=== PATIENT | female | born 1985 | race Caucasian/White ===

== ENCOUNTER 2022-03-30 13:24 | Emergency (ER) | payer OTHER, SELFPAY ==
[2022-03-30 13:42] VITALS: BP 152/81; PULSE 97; RESP 20; TEMP 36.9; O2SAT 99; BMI 24.7
[2022-03-30 15:19] VITALS: PULSE 104; RESP 18; O2SAT 98
[2022-03-30 15:20] VITALS: BP 132/78; PULSE 81; O2SAT 100
[2022-03-30 15:30] VITALS: PULSE 93; O2SAT 100
[2022-03-30 16:00] VITALS: PULSE 85; O2SAT 100
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
[2022-03-30] MEDS: LIDOCAINE 2% INJ MDV 4 ML SUBCUT (16:42)
[2022-03-30] MEDS: KETOROLAC 10 MG TABLET PO (17:11)
[2022-03-30] MEDS: TET,DIPH,PERTUSS(ACELL),VAC/PF 0.5 ML SYRINGE IM (17:11)
[2022-03-30] MEDS: HYDROCODONE/ACET 5/325 TABLET 1 TAB PO (17:12)
[2022-03-30 18:17] VITALS: BP 122/72; PULSE 83; RESP 18; O2SAT 98
--- NOTE | 2022-03-30 20:23 | ED_ITS ---
HPI - Wound/Laceration <PALMA Whitfield - Last Filed: 03/30/22 20:52> General Chief Complaint: Wound/Laceration Stated Complaint: Rt Leg Laceration Time Seen by Provider: 03/30/22 16:28 Source: patient Mode of arrival: Ambulatory History of Present Illness HPI narrative: This is a 36-year-old female presents to the emergency department with a laceration on her right lower extremity she sustained while hiking earlier today. Patient reports that she cut her leg on a rock, and then applied KT tape to hold the wound closed for the rest of the hike. Patient states that her last tetanus was approximately seven years ago. She denies any sensation or mobility deficit in her lower extremity, states that she has not had a chance to clean her wound yet. Related Data Allergies Allergy/AdvReac Type Severity Reaction Status Date / Time No Known Drug Allergies Allergy Verified 03/30/22 13:52 Review of Systems <PALMA Whitfield - Last Filed: 03/30/22 20:52> Review of Systems Narrative: General: Tolerating symptoms without distress, denies weakness, sensation changes Head/Neck: denies headache, neck pain ENT: denies visual changes, eye pain, denies other symptoms Cardio: denies chest pain, palpitations, edema Respiratory: denies shortness of breath, cough, difficulty MSK: denies weakness, sensation changes, or mobility deficit Skin: denies rash, wound on her right lower extremity, approximately 3 cm Neuro: denies numbness, tingling, dizziness Patient History <PALMA Whitfield - Last Filed: 03/30/22 20:52> Social History Smoking Status: Never smoker Smoking Status: Never smoker alcohol intake frequency: holidays/special occasions only Exam <PALMA Whitfield - Last Filed: 03/30/22 20:52> Narrative Exam Narrative: Independently reviewed vitals signs and nursing notes. General: Awake, alert, nontoxic, no acute distress, interactive Head/Neck: neck with normal range of motion Cardiovascular: Warm extremities, peripheral pulses are palpable, without dependant edema Respiratory: Respirations unlabored and without increased effort, wheezing, stridor, or rales. No retractions, hypoxia or tachypnea. MSK: Ambulatory, neurovascularly intact, right lower extremity including ankle, foot, and right knee with normal range of motion, no deficits, right pedal pulses are 2+, brisk cap refill Skin: Normal capillary refill, linear wound approximately 3 cm without bleeding, mildly contaminated with dirt Neuro: Normal speech and cognition, normal gait Initial Vital Signs Initial Vital Signs: Vital Signs Temperature 98.4 F 03/30/22 13:42 Pulse Rate 97 H 03/30/22 13:42 Respiratory Rate 20 03/30/22 13:42 Blood Pressure 152/81 H 03/30/22 13:42 Pulse Oximetry 99 03/30/22 13:42 Oxygen Delivery Method 03/30/22 13:42 <Deshaun Grover DO - Last Filed: 03/31/22 00:42> Initial Vital Signs Initial Vital Signs: Vital Signs Temperature 98.4 F 03/30/22 13:42 Pulse Rate 97 H 03/30/22 13:42 Respiratory Rate 20 03/30/22 13:42 Blood Pressure 152/81 H 03/30/22 13:42 Pulse Oximetry 99 03/30/22 13:42 Oxygen Delivery Method 03/30/22 13:42 Procedures <PALMA Whitfield - Last Filed: 03/30/22 20:52> Laceration Repair Laceration 1: Site: lower extremity Side (If applicable): right Size (cm): 3 Description: linear and contaminated Depth: simple, single layer Local Anesthetic: lidocaine 1% Amount of anesthesia used (mL): 8 Pre-repair: wound explored and irrigated extensively Skin layer closed with: nylon Skin layer suture size: 5-0 Number of sutures: 12 Technique: simple, interrupted Subcutaneous layer closed with: chromic gut Subcutaneous layer suture size: 5-0 Number of sutures: 2 Technique: simple, interrupted (horizontal mattress) Course <PALMA Whitfield - Last Filed: 03/30/22 20:52> Orders Ordered: Discontinued Medications Hydrocodone Bitart/Acetaminophen (Hydrocodone/Acet 5/325 Tablet) 1 tab PO NOW ONE Stop: 03/30/22 16:55 Last Admin: 03/30/22 17:12 Dose: 1 tab Documented By: NR Diphtheria/Tetanus/Acell Pertussis (Tet,Diph,Pertuss(Acell),Vac/Pf 0.5 Ml Syringe) 0.5 ml IM .ONCE ONE Stop: 03/30/22 16:56 Last Admin: 03/30/22 17:11 Dose: 0.5 ml Documented By: NR Ketorolac Tromethamine (Ketorolac 10 Mg Tablet) 10 mg PO NOW ONE Stop: 03/30/22 16:55 Last Admin: 03/30/22 17:11 Dose: 10 mg Documented By: NR Lidocaine HCl (Lidocaine 1% (Pf) 5 Ml) 1 ml SUBCUT NOW ONE Stop: 03/30/22 16:29 Lidocaine HCl (Lidocaine 2% Inj Mdv) 4 ml SUBCUT NOW ONE Stop: 03/30/22 16:39 Last Admin: 03/30/22 16:42 Dose: 4 ml Documented By: LESLIE Vital Signs Vital signs: Vital Signs - 8 hr 03/30/22 18:17 Pulse Rate 83 Respiratory Rate 18 Blood Pressure 122/72 Pulse Oximetry 98 <Deshaun Grover DO - Last Filed: 03/31/22 00:42> Orders Ordered: Discontinued Medications Hydrocodone Bitart/Acetaminophen (Hydrocodone/Acet 5/325 Tablet) 1 tab PO NOW ONE Stop: 03/30/22 16:55 Last Admin: 03/30/22 17:12 Dose: 1 tab Documented By: NR Diphtheria/Tetanus/Acell Pertussis (Tet,Diph,Pertuss(Acell),Vac/Pf 0.5 Ml Syringe) 0.5 ml IM .ONCE ONE Stop: 03/30/22 16:56 Last Admin: 03/30/22 17:11 Dose: 0.5 ml Documented By: CLEMENTE Ketorolac Tromethamine (Ketorolac 10 Mg Tablet) 10 mg PO NOW ONE Stop: 03/30/22 16:55 Last Admin: 03/30/22 17:11 Dose: 10 mg Documented By: NR Lidocaine HCl (Lidocaine 1% (Pf) 5 Ml) 1 ml SUBCUT NOW ONE Stop: 03/30/22 16:29 Lidocaine HCl (Lidocaine 2% Inj Mdv) 4 ml SUBCUT NOW ONE Stop: 03/30/22 16:39 Last Admin: 03/30/22 16:42 Dose: 4 ml Documented By: LESLIE Vital Signs Vital signs: Vital Signs - 8 hr 03/30/22 18:17 Pulse Rate 83 Respiratory Rate 18 Blood Pressure 122/72 Pulse Oximetry 98 [facility] - Wound/Laceration <Adele Barksdale, [facility] - Last Filed: 03/30/22 20:52> [facility] Narrative Medical decision making narrative: This is a 36-year-old female who sustained a laceration to her right lower extremity while hiking today on a rock. She received 12 nonabsorbable sutures her right lower extremity, two chromic gut horizontal mattress sutures. Wound was thoroughly cleansed and irrigated removing all of the visible debris, her tetanus was updated, she was treated for pain with a hydrocodone, Toradol, and reports that she tolerated well. No evidence of uncontrolled hemorrhage, infection, open fracture/joint, and deep injury, or damage to tendons, nerves, or blood vessels. Follow-up for suture removal in [8-10] days. Please keep wound clean, dry, wash with soap and water at least twice a day, apply antibiotic ointment and a Band-Aid. Follow-up with your PCP as directed within 1 week or sooner if new/worsening symptoms arise. Discharge Plan Departure Patient Disposition: Home Clinical Impression: Laceration Instructions: DI for Laceration Repair Activity Restrictions/Additional Instructions: *You have been diagnosed with a laceration to your right lower leg. You received 12 sutures today. Please keep this clean, covered with a Band-Aid unless in the shower, cover with antibiotic ointment change her dressing at least once a day. Please have your sutures removed in 10 days, please return to the emergency department if you develop any redness that is streaking up your leg, swelling, pus coming out of your wound, if you develop a fever or any other signs of infection. Please stay hydrated, try not to keep your leg dependent for too long, it will become edematous. Take ibuprofen 600 mg every 6 hours as needed for pain with food and water, you can add Tylenol to that as well. I hope you feel better soon, it was nice to meet you both. *What to do: *Please continue to take your regular medications as directed. [ ] New medication prescriptions sent to your pharmacy: [ ] [ ] New medication written as a paper prescription [x ] No new medications given *Please follow up with your primary care provider in 2-3 days, call for an appointment. Let them know you were seen in the Emergency Department and that we asked that you be seen for follow-up. We will electronically transmit a record of today's note if your PCP is in our system *If you do not have a primary care provider please contact [phone] to mehnaz pendleton with one of the [facility] primary care providers. *Return to Emergency Department if you should have any new, worsening or concerning symptoms, such as [fever greater than 101F, chills, worsening pain, persistent vomiting or other bothersome symptoms] Referrals: Miscellaneous,Doctor, [Primary Care Provider] - Visit Report Forms: Patient Portal/API <Deshaun Grover DO - Last Filed: 03/31/22 00:42> Cosign ED Attending Spencer Attestation: I was immediately available in the department for consultation. Documentation has been reviewed. I agree with assessment and plan.
== END 2022-03-30 18:18 | disposition home or self-care (01) ==
PROVIDERS: Emergency Provider Nurse Practitioner Critical Care Medicine
DX: S81.811A Laceration without foreign body, right lower leg, initial encounter (principal); W45.8XXA Other foreign body or object entering through skin, initial encounter; Z23 Encounter for immunization
CPT/HCPCS: 12002; 90471; 99283; 90715